=== PATIENT | female | born 1985 | race Caucasian/White ===

== ENCOUNTER 2021-01-05 11:11 | Outpatient (REF) | payer BC, SELFPAY | END 2021-01-05 11:12 | disposition home or self-care (01) | LOC: HO.MDS 11:11 | PROVIDERS: PCP Nurse Practitioner Family; Visit Provider Psychiatry & Neurology Neurology | DX: G35 Multiple sclerosis (principal) | CPT/HCPCS: 96365; J2930 ==

== ENCOUNTER 2021-01-06 10:52 | Outpatient (REF) | payer BC, SELFPAY | END 2021-01-06 10:53 | disposition home or self-care (01) | LOC: HO.MDS 10:52 | PROVIDERS: PCP Nurse Practitioner Family; Visit Provider Psychiatry & Neurology Neurology | DX: G35 Multiple sclerosis (principal) | CPT/HCPCS: 96365; J2930 ==

== ENCOUNTER 2021-01-07 11:19 | Outpatient (REF) | payer BC, SELFPAY | END 2021-01-07 11:20 | disposition home or self-care (01) | LOC: HO.MDS 11:19 | PROVIDERS: PCP Nurse Practitioner Family; Visit Provider Psychiatry & Neurology Neurology | DX: G35 Multiple sclerosis (principal) | CPT/HCPCS: 96365; J2930 ==

== ENCOUNTER 2021-01-08 11:01 | Outpatient (REF) | payer BC, SELFPAY | END 2021-01-08 11:02 | disposition home or self-care (01) | LOC: HO.MDS 11:01 | PROVIDERS: PCP Nurse Practitioner Family; Visit Provider Psychiatry & Neurology Neurology | DX: G35 Multiple sclerosis (principal) | CPT/HCPCS: J2930 ==

== ENCOUNTER 2021-01-09 11:25 | Outpatient (REF) | payer BC, SELFPAY | END 2021-01-09 11:26 | disposition home or self-care (01) | LOC: HO.MDS 11:25 | PROVIDERS: PCP Nurse Practitioner Family; Visit Provider Physician Assistant Medical | DX: G35 Multiple sclerosis (principal) | CPT/HCPCS: 96365; J2930 ==

== ENCOUNTER 2025-03-05 08:28 | Outpatient (AMB) | payer BC, SELFPAY ==
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
--- OUTSIDE RECORDS SUMMARY | 2025-03-05 08:44 | XMS_ITS ---
Author Name [facility] Organization Unknown Results Test Name/Text Value Interpretation Date Range Source CHOLESTEROL 184.0 mg/dL Normal 11/29/2023 - 200 [facility] LDL 97.0 Normal 11/29/2023 0 - 129 [facility] HDL 71.0 mg/dL Normal 11/29/2023 - [facility] TRIGLYCERIDE WITH LDLD REFLEX 79.0 mg/dL Normal 11/29/2023 - 150 [facility] GFRE 98.0 Normal 11/29/2023 60 - [facility] GLUCOSE 81.0 mg/dL Normal 11/29/2023 74 - 100 [facility] ALT (SGPT) 27.0 U/L Normal 11/29/2023 12 - 78 [facility] CO2 27.0 mmol/L Normal 11/29/2023 21 - 32 [facility] AST (SGOT) 12.0 U/L Below low normal 11/29/2023 15 - 37 [facility] CREATININE 0.71 mg/dL Normal 11/29/2023 0.55 - 1.3 [facility] SODIUM 142.0 mmol/L Normal 11/29/2023 136 - 145 [facility] BUN/CREAT.RATIO 19.7 Normal 11/29/2023 [facility] ALBUMIN 3.3 g/dL Below low normal 11/29/2023 3.4 - 5 [facility] PROTEIN, TOTAL 6.5 g/dL Normal 11/29/2023 6.4 - [facility].2 [facility] 37.0 U/L Below low normal 11/29/2023 5 0 - 136 [facility] A/G RATIO 1.0 g/dL Normal 11/29/2023 [facility] BILIRUBIN,TOTAL 0.6 mg/dL Normal 11/29/2023 0.2 - 1 [facility] CALCIUM 9.5 mg/dL Normal 11/29/2023 8.5 - 10.1 [facility] BUN 14.0 mg/dL Normal 11/29/2023 7 - 18 [facility] GLOBULIN 3.2 g/dL Normal 11/29/2023 2.4 - 4.2 [facility] CHLORIDE 108.0 mmol/L Above high normal 11/29/2023 98 - 107 [facility] POTASSIUM SERUM 4.2 mmol/L Normal 11/29/2023 3.5 - 5.1 [facility] PATIENT FASTING? YES Normal 11/29/2023 [facility] HGB 12.9 g/dL Normal 11/29/2023 12.1 - 15.7 [facility] LYMPHS 12.0 % Below low normal 11/29/2023 16 - 50 [facility] ABSOLUTE LYMPHS 0.6 K/uL Below low normal 11/29/2023 1.5 - 4.9 [facility] ABSOLUTE BASO 0.0 K/uL Normal 11/29/2023 0 - 0.2 [facility] GRANULOCYTES 74.0 % Normal 11/29/2023 23 - 78 [facility] MCV 88.0 fL Normal 11/29/2023 83 - 102 [facility] ABSOLUTE NUCLEATED RBC 0.0 K/uL Normal 11/29/2023 0 - 0. 012 [facility] ABSOLUTE MONOS 0.5 K/uL Normal 11/29/2023 0.2 - 1.5 [facility] RDW 13.2 % Normal 11/29/2023 11.1 - 13.3 [facility] MONOCYTES 10.0 % Normal 11/29/2023 0 - 12 [facility] MCHC 33.4 g/dL Normal 11/29/2023 31 - 36 [facility] ABSOLUTE IMMATURE GRANULOCYTES 0.0 K/uL Normal 11/29/2023 0 - 0.3 [facility] BASOPHILS 0.0 % Normal 11/29/2023 0 - 2 [facility] PLATELET COUNT 343.0 K/uL Normal 11/29/2023 150 - 480 [facility] HCT 38.6 % Normal 11/29/2023 36 - 46 [facility] EOSINOPHILS 4.0 % Normal 11/29/2023 0 - 6 [facility] WBC 4.9 K/uL Normal 11/29/2023 3.7 - 10.3 [facility] ABSOLUTE EOS 0.2 K/uL Normal 11/29/2023 0 - 0.7 [facility] MH IMMATURE GRANULOCYTES 1.0 % Above high normal 11/29/2023 0 - 0.45 [facility] MPV 10.0 fL Normal 11/29/2023 8 - 12 [facility] NUCLEATED RBC 0.0 % Normal 11/29/2023 0 - 0.2 [facility] RBC 4.4 M/uL Normal 11/29/2023 4 - 5.4 [facility] MCH 29.0 PG Normal 11/29/2023 27 - 34 [facility] ABSOLUTE GRANULOCYTES 3.6 K/uL Normal 11/29/2023 2.2 - 7 .3 [facility] TSH WITH REFLEX T4 FREE 0.97 uIU/mL Normal 08/26/2023 0.35 - 4.5 [facility] LYMPHS 9.0 % Below low normal 08/26/2023 16 - 50 [facility] MPV 11.0 fL Normal 08/26/2023 8 - 12 [facility] MCH 29.0 PG Normal 08/26/2023 27 - 34 [facility] IMMATURE GRANULOCYTES 0.0 % Normal 08/26/2023 0 - 0.4 5 [facility] EOSINOPHILS 2.0 % Normal 08/26/2023 0 - 6 [facility] ABSOLUTE NUCLEATED RBC 0.0 K/uL Normal 08/26/2023 0 - 0. 012 [facility] MCV 93.0 fL Normal 08/26/2023 83 - 102 [facility] ABSOLUTE LYMPHS 0.5 K/uL Below low normal 08/26/2023 1.5 - 4.9 [facility] PLATELET COUNT 356.0 K/uL Normal 08/26/2023 150 - 480 [facility] RBC 4.32 M/uL Normal 08/26/2023 4 - 5.4 [facility] ABSOLUTE EOS 0.1 K/uL Normal 08/26/2023 0 - 0.7 [facility] MH RDW 13.2 % Normal 08/26/2023 11.1 - 13.3 [facility] MCHC 31.6 g/dL Normal 08/26/2023 31 - 36 [facility] ABSOLUTE GRANULOCYTES 4.0 K/uL Normal 08/26/2023 2.2 - 7 .3 [facility] WBC 5.1 K/uL Normal 08/26/2023 3.7 - 10.3 [facility] HCT 40.2 % Normal 08/26/2023 36 - 46 [facility] ABSOLUTE BASO 0.0 K/uL Normal 08/26/2023 0 - 0.2 [facility] MONOCYTES 10.0 % Normal 08/26/2023 0 - 12 [facility] GRANULOCYTES 78.0 % Normal 08/26/2023 23 - 78 [facility] MH ABSOLUTE MONOS 0.5 K/uL Normal 08/26/2023 0.2 - 1.5 [facility] NUCLEATED RBC 0.0 % Normal 08/26/2023 0 - 0.2 [facility] BASOPHILS 0.0 % Normal 08/26/2023 0 - 2 [facility] HGB 12.7 g/dL Normal 08/26/2023 12.1 - 15.7 [facility] ABSOLUTE IMMATURE GRANULOCYTES 0.0 K/uL Normal 08/26/2023 0 - 0.3 [facility] Encounters Encounter Type Encounter Reason Primary Diagnosis Location Date [facility], [facility]. 09/28/2024 Ambulatory MULTIPLE SCLEROSIS MULTIPLE SCLEROSIS Pro spect [facility], [facility] 04/27/2024 Ambulatory SCREENING FOR BREAST CANCER SCREENING FOR BREAST CANCER [facility] 12/10/2023 [facility] 11/29/2023 [facility], [facility] 08/26/2023 Emergency EYE INJURY EYE INJURY [facility], [facility]. 06/11/2023 [facility], [facility]. 11/24/2022 [facility] 08/13/2022 Ambulatory MULTIPLE SCLEROSIS MULTIPLE SCLEROSIS Pro spect [facility], [facility]. 04/18/2022 Care Team Organization Name Specialty Phone Email Start Date End Da te Sandra [place] [employer] ([facility]) [place] [facility] 09/12/2024 [facility] [place] [facility] 04/30/2024 11/27/2024 [facility], [facility]. [place] 04/16/2024 [facility] [place] [facility] 12/03/2023 03/21/2024 [facility] [place] [facility] 12/02/2023 [facility] provided,No Primary Care 06/11/2023 11/27/2024 [facility] remember Patient Primary Care 04/20/20222024 [facility] provided No Primary Care 04/16/2022 11/27/2024 [facility]. [place] [facility] 03/10/2022 04/18/20 [facility]. No provided Primary Care 03/10/2022 [facility]. Patient remember Primary Care 03/10/2022
== END 2025-03-05 08:53 | disposition home or self-care (01) ==
LOC: HO.HSM 08:28
PROVIDERS: PCP Nurse Practitioner Family; Referring Provider Internal Medicine; Visit Provider Psychiatry & Neurology Neurology
DX: G35.D Multiple sclerosis, unspecified (principal)
CPT/HCPCS: 99214